=== PATIENT | male | born 1945 | race Caucasian/White ===

== ENCOUNTER 2018-05-21 13:16 | Emergency (ER) | payer OTHER ==
[~2018-05-21] VITALS: Ht 180.3 cm; Wt 122.0 kg
[2018-05-21] MEDS ORDERED: LEVO-T125 MCG PO (14:12)
[2018-05-21] MEDS ORDERED: METFORMIN HCL750 MG PO (14:12)
[2018-05-21] MEDS ORDERED: ATORVASTATIN CA40 MG PO (14:12)
[2018-05-21] MEDS ORDERED: COZAAR100 MG PO (14:12)
[2018-05-21] MEDS ORDERED: ASA81 MG PO (14:13)
[2018-05-21] MEDS ORDERED: PLAVIX75 MG PO (14:13)
[2018-05-21] MEDS ORDERED: PROZAC40 MG PO (14:13)
[2018-05-21] MEDS ORDERED: BACTRIM DS TAB1 EACH PO (21:46)
[2018-05-21] MEDS ORDERED: MUPIROCIN15 GM TOP (21:46)
[2018-05-21] MEDS ORDERED: INTESTINEX680 M1 PO (21:46)
== END 2018-05-21 22:24 | disposition home or self-care (01) ==
LOC: ER 13:16
DX: L27.1 Localized skin eruption due to drugs and medicaments taken internally (principal); N49.2 Inflammatory disorders of scrotum; R10.2 Pelvic and perineal pain; T39.315S Adverse effect of propionic acid derivatives, sequela